=== PATIENT | male | born 2005 | race Two or more races ===

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

== ENCOUNTER 2025-08-21 11:41 | Emergency (ER) | payer SELFPAY | END 2025-08-21 13:22 | disposition left against medical advice (07) | LOC: MW.ED 11:41 | DX: Z53.21 Procedure and treatment not carried out due to patient leaving prior to being seen by health care provider (principal) ==